=== PATIENT | female | born 1970 | race Caucasian/White ===

== ENCOUNTER 2018-05-20 06:39 | Emergency (ER) | payer SELFPAY ==
[~2018-05-20] VITALS: Ht 162.6 cm; Wt 106.6 kg
[2018-05-20] MEDS ORDERED: CLEOCIN HCL300 MG PO (07:17)
[2018-05-20] MEDS ORDERED: IBUPROFEN600 MG PO (07:17)
== END 2018-05-20 07:46 | disposition home or self-care (01) ==
LOC: ED 06:39
DX: H60.01 Abscess of right external ear (principal)
CPT/HCPCS: 99282